=== PATIENT | male | born 1945 | race Caucasian/White ===

== ENCOUNTER 2017-11-13 22:47 | Emergency (ER) | payer MEDICARE ==
[~2017-11-13] VITALS: Ht 188 cm; Wt 86.0 kg
[2017-11-13 22:52] VITALS: BP 157/58
[2017-11-13] MEDS ORDERED: BACITRACIN ZINC OINT 500U/GM, 0.9 GM ONE (23:08)
== END 2017-11-14 00:23 | disposition home or self-care (01) ==
LOC: ED 23:33
DX: L89.322 Pressure ulcer of left buttock, stage 2 (principal); L89.312 Pressure ulcer of right buttock, stage 2; F17.200 Nicotine dependence, unspecified, uncomplicated; F10.10 Alcohol abuse, uncomplicated
CPT/HCPCS: 99283